=== PATIENT | male | born 1955 | race Caucasian/White ===

== ENCOUNTER 2017-08-12 10:30 | Inpatient (IN) | payer OTHER ==
[~2017-08-12] VITALS: Ht 188 cm; Wt 94.3 kg
[~2017-08-12 10:30] MED LIST: ASPIR 8181 MG PO; ATACAND4 MG PO; BACLOFEN20 MG PO; CLONAZEPAM0.5 MG PO; OXYBUTYNIN CHLOR5 MG PO; SYNTHROID100 MCG PO; [UNRECOGNIZED DRUG - OTHER] PO
[2017-08-20] MEDS ORDERED: RILUZOLE50 MG PO (10:02)
[2017-08-20] MEDS ORDERED: GABAPENTIN800 MG PO (10:30)
[2017-08-20] MEDS ORDERED: DOCUSATE SODIU100 MG PO (10:30)
[2017-08-20] MEDS ORDERED: AMOX-CLAV 875-1 EACH PO (10:31)
[2017-08-20] MEDS ORDERED: PERCOCET 5-3251 EACH PO (10:32)
[2017-08-20] MEDS ORDERED: CLONAZEPAM1 MG PO (10:32)
== END 2017-08-20 13:54 | disposition home or self-care (01) | DRG 460 ==
LOC: O/R 08-19 05:00 → PED 08-19 05:00 → SURH 08-19 10:30 → PED 08-19 15:52
PROVIDERS: Orthopaedic Surgery Orthopaedic Surgery of the Spine
PROC: 00NY0ZZ Release Lumbar Spinal Cord, Open Approach (ICD-10-PCS; 2017-08-19)
PROC: 0ST40ZZ Resection of Lumbosacral Disc, Open Approach (ICD-10-PCS; 2017-08-19)
PROC: 07DS3ZZ Extraction of Vertebral Bone Marrow, Percutaneous Approach (ICD-10-PCS; 2017-08-19)
PROC: 0SG30AJ Fusion of Lumbosacral Joint with Interbody Fusion Device, Posterior Approach, Anterior Column, Open Approach (ICD-10-PCS; principal; 2017-08-19 12:30)
DX: M51.17 Intervertebral disc disorders with radiculopathy, lumbosacral region (principal); M47.27 Other spondylosis with radiculopathy, lumbosacral region; M43.17 Spondylolisthesis, lumbosacral region; M48.07 Spinal stenosis, lumbosacral region; E03.8 Other specified hypothyroidism

== ENCOUNTER 2019-07-22 09:52 | Outpatient (CLI) | payer OTHER ==
[~2019-07-22 09:52] MED LIST changes: +AMOX-CLAV 875-1 EACH PO; +CLONAZEPAM1 MG PO; +DOCUSATE SODIU100 MG PO; +GABAPENTIN800 MG PO; +PERCOCET 5-3251 EACH PO; +RILUZOLE50 MG PO
== END 2019-07-22 09:59 | disposition home or self-care (01) ==
LOC: MRI 09:52
DX: M48.061 Spinal stenosis, lumbar region without neurogenic claudication (principal); Z98.1 Arthrodesis status; M95.0 Acquired deformity of nose
CPT/HCPCS: 72148

== ENCOUNTER 2021-03-14 10:36 | Emergency (ER) | payer OTHER ==
[~2021-03-14] VITALS: Ht 188 cm; Wt 99.8 kg
== END 2021-03-14 15:51 | disposition home or self-care (01) ==
LOC: ER 10:36
DX: M43.17 Spondylolisthesis, lumbosacral region (principal); M54.59 Other low back pain